=== PATIENT | male | born 1955 | race Caucasian/White ===

== ENCOUNTER → 2017-07-03 | Outpatient (CLI) | payer BC ==
[~2017-07-03] MED LIST: ALLOPURINOL100 MG PO; ASPIR-TRIN325 M1 PO; ASPIRIN EC325 MG PO; ASPIRIN325 MG PO; BACTRIM,SEPT1 TABLET PO; BENADRYL50 MG PO; BENEMID500 MG PO; BENICAR40 MG PO; CARDIZEM CD240 MG PO; CARDIZEM LA240 MG PO; CELEBREX200 MG PO; CIPRO500 MG PO; COLACE100 MG PO; COLCHICINE,COL0.6 MG PO; COLCHICINE0.6 M1 PO; COLCRYS0.6 MG PO; COUMADIN,JANTOVE1 MG PO; Cardizem CD,Cartia X PO; Colace PO; Colchicine,Colcrys PO; DILAUDID2 MG PO; DRISDOL50000 UNIT PO; Dilaudid PO; Duragesic TD; ENDOCET 5-3251 EACH PO; ERGOCALCIF50000 UNIT PO; Ecotrin PO; FENTANYL1 EAC5 TD; FEOSOL325 MG PO; FLEXERIL10 MG PO; FLINTSTONES CO1 EAC1 PO; FLINTSTONES M300 MCG PO; FLORASTOR250 MG PO; GABAPENTIN300 MG PO; GLIPIZIDE5 MG PO; Glucotrol PO; HYDROCODON-ACE1 EAC7 PO; HYDROGESIC 5-51 EACH PO; K-DUR20 MEQ PO; K-Dur PO; LAMISIL250 MG PO; LEVOTHYROXINE175 MCG PO; LIDODERM 5% P1 PATCH TP; Levothroid,Synthroid PO; MS CONTIN,ORAMO15 M1 PO; Miralax, Glycolax PO; OXYCONTIN15 MG PO; Omega III EPA + DHA PO; PERCOCET 10/1 TABLET PO; POTASSIUM-9999 MG PO; PRAVACHOL40 MG PO; PREDNISONE20 MG PO; PROTONIX40 MG PO; Pravachol PO; Protonix PO; RIMACTANE,RIFA300 MG PO; RYBIX ODT50 MG PO; SENOKOT S,PE1 TABLET PO; SERTRALINE HCL50 MG PO; SYNTHROID100 MCG PO; SYNTHROID175 MCG PO; TRAMADOL HCL50 MG PO; TYLENOL EXTRA500 MG PO; Vicodin,Lortab 5/500 PO; Vitamin D, Drisdol PO; XARELTO20 MG PO; ZOLOFT50 MG PO; ZYLOPRIM50 MG PO; Zoloft PO; Zyloprim PO; celeBREX PO
== END | disposition home or self-care (01) ==
LOC: NUC 10:00
DX: M19.91 Primary osteoarthritis, unspecified site (principal); R93.7 Abnormal findings on diagnostic imaging of other parts of musculoskeletal system; Z96.651 Presence of right artificial knee joint
CPT/HCPCS: 78315; A9503

== ENCOUNTER → 2017-09-18 | Outpatient (CLI) | payer BC | END | disposition home or self-care (01) | LOC: AMB 10:17 | PROC: 0JPT0WZ Removal of Totally Implantable Vascular Access Device from Trunk Subcutaneous Tissue and Fascia, Open Approach (ICD-10-PCS; principal; 2017-09-18) | DX: Z45.2 Encounter for adjustment and management of vascular access device (principal); I10 Essential (primary) hypertension; G47.30 Sleep apnea, unspecified; Z86.711 Personal history of pulmonary embolism; Z86.718 Personal history of other venous thrombosis and embolism; F41.8 Other specified anxiety disorders; E78.5 Hyperlipidemia, unspecified; K21.9 Gastro-esophageal reflux disease without esophagitis; Z79.82 Long term (current) use of aspirin; E66.9 Obesity, unspecified; Z68.41 Body mass index [BMI] 40.0-44.9, adult ==

== ENCOUNTER 2017-10-28 16:00 | Emergency (ER) | payer BC ==
[~2017-10-28] VITALS: Ht 182.9 cm; Wt 147.3 kg
[2017-10-28] MEDS ORDERED: KEFLEX500 MG PO (18:22)
[2017-10-28 18:52] VITALS: BP 155/92
== END 2017-10-28 18:53 | disposition home or self-care (01) ==
LOC: EME 16:00
DX: L03.115 Cellulitis of right lower limb (principal); M79.89 Other specified soft tissue disorders; Z86.718 Personal history of other venous thrombosis and embolism; E11.9 Type 2 diabetes mellitus without complications; Z88.1 Allergy status to other antibiotic agents; Z88.8 Allergy status to other drugs, medicaments and biological substances
CPT/HCPCS: 93971; 99281; 99284

== ENCOUNTER 2018-02-05 05:54 | Day surgery (SDC) | payer BC ==
[~2018-02-05] VITALS: Ht 182.9 cm; Wt 147.5 kg
[~2018-02-05 05:54] MED LIST changes: +AMARYL4 MG PO; +KEFLEX500 MG PO; +SYNTHROID200 MCG PO
[2018-02-05] MEDS ORDERED: CILOSTAZOL100 MG PO (06:54)
[2018-02-05 07:01] VITALS: BP 132/73
[2018-02-05 11:54] VITALS: BP 113/58
[2018-02-05 13:10] VITALS: BP 110/56
== END 2018-02-05 13:25 | disposition home or self-care (01) ==
LOC: SDC 05:54
PROVIDERS: Podiatrist Foot & Ankle Surgery
DX: M20.5X1 Other deformities of toe(s) (acquired), right foot (principal); M20.41 Other hammer toe(s) (acquired), right foot; I10 Essential (primary) hypertension; F41.9 Anxiety disorder, unspecified; E11.9 Type 2 diabetes mellitus without complications; E03.9 Hypothyroidism, unspecified; K21.9 Gastro-esophageal reflux disease without esophagitis; Z79.82 Long term (current) use of aspirin; Z79.84 Long term (current) use of oral hypoglycemic drugs; Z86.718 Personal history of other venous thrombosis and embolism; Z86.711 Personal history of pulmonary embolism; E66.01 Morbid (severe) obesity due to excess calories; Z68.41 Body mass index [BMI] 40.0-44.9, adult
CPT/HCPCS: 73660; 76000; 82948; 88304; 88311; 94640; C1713; C1769; J0131; J1100; J2250; J3010; J3370; S0020

== ENCOUNTER 2018-02-13 07:10 | Emergency (ER) | payer BC ==
[~2018-02-13] VITALS: Ht 182.9 cm; Wt 150.0 kg
[~2018-02-13 07:10] MED LIST changes: +CILOSTAZOL100 MG PO
[2018-02-13 07:50] LABS: BASOPHIL (%) 0.5 % (0-1); EOSINOPHIL (%) 4.4 % (0-5); EOSINOPHIL COUNT 0.4 K/uL (0-0.3); HEMATOCRIT 36.7 % (38.0-50.0); IMMATURE GRANULOCYTE (%) 1.5 % (0.0-0.7); LYMPHOCYTE (%) 24.2 % (15-42); MCH 26.3 PG (29.0-34.0); MCHC 32.7 G/DL (30.0-36.0); MCV 80.5 FL (86-99); MONOCYTE (%) 7.8 % (3-12); MONOCYTE COUNT 0.6 K/uL (0-0.8); NEUTROPHIL (%) 61.6 % (45-76); NEUTROPHIL COUNT 5.1 K/uL (1.8-6.4); PLATELET COUNT 246 K/uL (156-360); RBC DIS.WIDTH-CV 15.9 % (11.8-14.6); RBC DIS.WIDTH-SD 46.4 % (39-53); RED BLOOD COUNT 4.56 M/uL (4.00-5.50); WHITE BLOOD COUNT 8.2 K/uL (4.1-10.2)
[2018-02-13 07:58] LABS: CHLORIDE 102 mEq/L (99-109); POTASSIUM 3.9 mEq/L (3.7-5.4); SODIUM 139 mEq/L (136-147)
[2018-02-13 07:59] LABS: GLUCOSE 133 mg/dL (70-99)
[2018-02-13 08:03] LABS: CREATININE 1.2 mg/dL (0.6-1.3); GFR ESTIMATE (CALCULATED) > 59 mL/min/ (58.99-99999)
[2018-02-13 08:04] LABS: UREA NITROGEN (BUN) 13 mg/dL (9-23)
[2018-02-13] MEDS ORDERED: LEVAQUIN750 MG PO (13:05)
[2018-02-13 13:46] VITALS: BP 150/90
== END 2018-02-13 13:46 | disposition home or self-care (01) ==
LOC: EME 07:10
PROVIDERS: Emergency Medicine
DX: J18.9 Pneumonia, unspecified organism (principal); M27.8 Other specified diseases of jaws; M79.671 Pain in right foot; E11.9 Type 2 diabetes mellitus without complications; Z86.718 Personal history of other venous thrombosis and embolism; Z86.711 Personal history of pulmonary embolism; Z86.14 Personal history of Methicillin resistant Staphylococcus aureus infection; Z88.0 Allergy status to penicillin; Z88.6 Allergy status to analgesic agent; Z88.1 Allergy status to other antibiotic agents
CPT/HCPCS: 70486; 71045; 71275; 80048; 85025; 85379; 93971; 94640; 99281; 99285; J7030

== ENCOUNTER → 2018-06-04 | Outpatient (CLI) | payer OTHER, BC ==
[~2018-06-04] MED LIST changes: +LEVAQUIN750 MG PO
== END | disposition home or self-care (01) ==
LOC: NUC 11:05
DX: E21.5 Disorder of parathyroid gland, unspecified (principal)
CPT/HCPCS: 78071; A9500